=== PATIENT | male | born 1985 | race American Indian/Alaskan Native ===

== ENCOUNTER 2017-11-07 09:10 | Emergency (ER) | payer OTHER ==
[2017-11-07 09:29] VITALS: BP 133/80
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
== END 2017-11-07 10:09 | disposition home or self-care (01) ==
LOC: ED 09:10
DX: M77.9 Enthesopathy, unspecified (principal)
CPT/HCPCS: 99282

== ENCOUNTER 2018-04-25 05:42 | Emergency (ER) | payer OTHER ==
[2018-04-25 06:12] VITALS: BP 131/77
--- NOTE | 2018-04-25 06:49 | XRay Report ---
FINAL REPORT PROCEDURE: XR WRIST 3+V RT TECHNIQUE: RIGHT wrist radiographs, including AP, lateral, oblique, and navicular views. HISTORY: pain and swelling COMPARISON: No prior studies are available for comparison. FINDINGS: Fracture(s)and/or Dislocation(s): None. Alignment: Normal. Joint space(s): Normal. Soft tissues: Normal. Bone mineralization: Normal. Foreign bodies: None. IMPRESSION: Normal Examination
--- NOTE | 2018-04-25 09:02 | Emergency Department Report ---
ED Extremity Problem HPI - General Chief complaint: Extremity Injury, Upper Stated complaint: RIGHT WRIST INJURY/SWOLLEN Time Seen by Provider: 04/25/18 08:17 Source: patient Mode of arrival: Ambulatory Limitations: No Limitations - History of Present Illness Initial comments: pt is 32 yo AA male with r forearm swelling for 3 days p lifting items at work. there is notable swelling to the medial aspect of the distal forearm. MD Complaint: extremity swelling -: Gradual, days(s) Location: right, upper extremity History of Same: No Consistency: constant Improves with: nothing Associated Symptoms: denies other symptoms - Related Data Allergies Allergy/AdvReac Type Severity Reaction Status Date / Time No Known Allergies Allergy Verified 04/25/18 06:12 ED Review of Systems ROS: Stated complaint: RIGHT WRIST INJURY/SWOLLEN Other details as noted in HPI Comment: All other systems reviewed and negative Constitutional: denies: chills Eyes: denies: eye pain ENT: denies: throat pain Respiratory: denies: orthopnea Cardiovascular: denies: chest pain Endocrine: denies: excessive sweating Gastrointestinal: denies: nausea Genitourinary: denies: urgency Musculoskeletal: as per HPI, other (r arm and wrist pain/swelling). denies: back pain Neurological: denies: headache Psychiatric: denies: anxiety Hematological/Lymphatic: denies: easy bleeding ED Past Medical Hx - Past Medical History Previous Medical History?: No - Surgical History Past Surgical History?: No - Social History Smoking Status: Current Every Day Smoker Substance Use Type: None ED Physical Exam - General Limitations: No Limitations - Head Head exam: Present: atraumatic - Eye Eye exam: Present: normal appearance, PERRL - ENT ENT exam: Present: mucous membranes moist - Neck Neck exam: Present: normal inspection - Respiratory Respiratory exam: Present: normal lung sounds bilaterally - Cardiovascular Cardiovascular Exam: Present: regular rate - GI/Abdominal GI/Abdominal exam: Present: soft, normal bowel sounds - Expanded Upper Extremity Exam Right Upper Arm exam: Present: normal inspection Elbow exam: Present: normal inspection Forearm Wrist exam: Present: full ROM (but difficult to bend wrist backward), swelling. Absent: tenderness, abrasion, laceration, ecchymosis Hand Wrist exam: Present: normal inspection Hand L/R Back: 1 - area of sweeling is just proximal to the indicated area. medial and ulnar nerve intact. rapid cap refill. strong radial and ulnar pulses. Neurosensory exam: Present: radial nerve intact, ulnar nerve intact, median nerve intact Vascular: Present: normal capillary refill, radial pulse, brachial pulse, ulnar pulse - Back Exam Back exam: Present: normal inspection ED Course Vital Signs 04/25/18 04/25/18 06:07 09:06 Temperature 99.1 F Pulse Rate 79 Respiratory 18 15 Rate Blood Pressure 131/77 O2 Sat by Pulse 98 Oximetry ED Medical Decision Making - Radiology Data Radiology results: report reviewed, image reviewed no fx - Medical Decision Making concern for fracture xray forearm and wrist neg will immob and have pt see ortho for follow up 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 - Differential Diagnosis ro fracture Critical care attestation.: If time is entered above; I have spent that time in minutes in the direct care of this critically ill patient, excluding procedure time. ED Disposition Clinical Impression: Forearm swelling, Soft tissue injury Disposition: TO HOME OR SELFCARE Is pt being admited?: No Does the pt Need Aspirin: No Condition: Stable Additional Instructions: ice rest elevate motrin or tylenol for pain follow up with ortho as discussed referral below splint for comfort Referrals: JEAN-CLAUDE CORNELL MD [Primary Care Provider] - 3-5 Days ISSA JOSHUA MD [Staff Physician] - 3-5 Days Time of Disposition: 09:01
[2018-04-25] MEDS ORDERED: IBUPROFEN PO ONE (09:03)
--- NOTE | 2018-04-25 09:04 | XRay Report ---
RIGHT FOREARM: History: Pain. AP and lateral views of the forearm demonstrate normal mineralization and contours for this patient's age. No destructive changes are noted and the adjacent soft tissues are normal. IMPRESSION: Normal right forearm.
== END 2018-04-25 09:48 | disposition home or self-care (01) ==
LOC: ED 05:42
DX: M79.601 Pain in right arm (principal); M79.9 Soft tissue disorder, unspecified; R22.31 Localized swelling, mass and lump, right upper limb